=== PATIENT | male | born 1985 | race Caucasian/White ===

== ENCOUNTER 2018-01-27 22:30 | Emergency (ER) | payer OTHER ==
[2018-01-27 22:34] VITALS: BP 132/73
[2018-01-27] MEDS ORDERED: Ibuprofen TAB* 600 MG PO ONE (22:43)
--- NOTE | 2018-01-27 23:54 | ED ---
Lower Extremity - HPI Summary HPI Summary: Patient presents to the ED with a chief complaint of left lateral ankle swelling after twisting it during soccer approximately one hour prior to arrival. He endorses a severe amount of swelling, slight ecchymosis. He was able to bear weight onto the ankle for a short amount of time after the accident. He is not bearing weight on arrival. He denies any other pain or symptoms. Denies falling, hitting has had or loss of consciousness. Denies any numbness or tingling in the foot or the leg. Denies pain into the leg or foot. Pulses +2 intact bilaterally dorsalis pedis and posterior tibial. He endorses a previous fracture to the ipsilateral leg when he was 16 years old. - History of Current Complaint Chief Complaint: EDExtremityLower Stated Complaint: LEFT ANKLE INJURY Time Seen by Provider: 01/27/18 22:36 Hx Obtained From: Patient Mechanism Of Injury: Twisted Onset of Pain: Minutes Onset/Duration: Minutes Severity Initially: Mild Severity Currently: Mild Pain Intensity: 3 Pain Scale Used: 0-10 Numeric Timing: Constant Location: Is Discrete @ - left lateral ankle Associated Signs And Symptoms: Positive: Swelling Aggravating Factor(s): Standing, Ambulation Alleviating Factor(s): Rest Able to Bear Weight: Yes - Risk Factors Gout Risk Factors: Negative DVT Risk Factors: Negative Septic Arthritis Risk Factor: Negative - Allergies/Home Medications Allergies/Adverse Reactions: Allergies Allergy/AdvReac Type Severity Reaction Status Date / Time No Known Allergies Allergy Verified 01/27/18 22:34 PMH/Surg Hx/FS Hx/Imm Hx Previously Healthy: Yes - Immunization History Hx Pertussis Vaccination: No Immunizations Up to Date: Unable to Obtain/Confirm Infectious Disease History: No Infectious Disease History: Denies: Traveled Outside the [place] in Last 30 Days - Social History Occupation: Employed Full-time Lives: With Family Alcohol Use: None Hx Substance Use: No Substance Use Type: Reports: None Hx Tobacco Use: No Smoking Status (MU): Never Smoked Tobacco Review of Systems Constitutional: Negative Negative: Fever, Chills, Fatigue Eyes: Negative Cardiovascular: Negative Genitourinary: Negative Positive: no symptoms reported, see HPI Positive: Arthralgia, Myalgia Skin: Negative Positive: Other - swelling Neurological: Negative All Other Systems Reviewed And Are Negative: Yes Physical Exam - Summary Physical Exam Summary: Thorough physical exam was performed, focusing on ankle special tests. Pain on palpation over lateral aspect and superior aspect of ankle over ATFL and deltoid ligaments. No pain on palpation over medial side. Due to patient pain around injury, physical exam was limited. Anterior drawer test and talar tilt test negative. Dale test negative. Limited ROM. Dorsiflexion, great toe extension and plantar flexion intact however limited. No pain on palpation over medial or lateral lower extremity. No pain with knee flexion. Pulses intact bilaterally. No temperature change or pallor noted bilaterally. Ecchymosis and swelling noted on lateral aspect. No lesion or disruption of skin is seen. Able to bear weight with pain. Triage Information Reviewed: Yes Vital Signs On Initial Exam: Initial Vitals Temp Pulse Resp BP Pulse Ox 99 F 97 16 132/73 95 01/27/18 22:32 01/27/18 22:32 01/27/18 22:32 01/27/18 22:32 01/27/18 22:32 Vital Signs Reviewed: Yes Appearance: Positive: Well-Appearing, Well-Nourished Skin: Positive: Warm, Other - sweling to lateral ankle Head/Face: Positive: Normal Head/Face Inspection Eyes: Positive: EOMI, PARAG, Conjunctiva Clear Neck: Positive: Supple, No Lymphadenopathy Respiratory/Lung Sounds: Positive: Clear to Auscultation, Breath Sounds Present Cardiovascular: Positive: Normal, RRR, Pulses are Symmetrical in both Upper and Lower Extremities Musculoskeletal: Positive: Strength/ROM Intact, Pain @ - left lateral ankle with pain and swelling. Negative: Fernie Sign Left, Fernie Sign Right, Edema Left , Edema Right Neurological: Positive: Speech Normal Psychiatric: Positive: Normal, Affect/Mood Appropriate AVPU Assessment: Alert Diagnostics - Vital Signs Vital Signs Temp Pulse Resp BP Pulse Ox 01/27/18 22:32 99 F 97 16 132/73 95 - Laboratory Lab Statement: Any lab studies that have been ordered have been reviewed, and results considered in the medical decision making process. Lower Extremity Course/Dx - Course Course Of Treatment: During the course of treatment, the patient's evaluated for left ankle swelling and pain. X-ray obtained and ibuprofen given. X-ray read by Dr. Ignacio and myself as negative for any new fractures. There appears to be an old small fracture to the distal fibula. Gel cast and crutches given. I will call tomorrow morning for any differing results from the radiology report. He is okay with this plan and discharge. - Diagnoses Provider Diagnoses: Ankle sprain Discharge - Discharge Plan Condition: Stable Disposition: HOME Patient Education Materials: Ankle Sprain (ED) Referrals: Riri Kumar MD [Primary Care Provider] - Bimal Ibarra MD [Medical Doctor] - Additional Instructions: Crutches for ambulation given. Ibuprofen 600mg three times daily with meals for pain. Follow up with orthopedic physician in 5-7 days. If numbness, tingling, decreased sensation, increased pain, temperature changes or pallor noted in toes, come back to ER immediately. Protect the area. For your comfort level, do not bear weight, pull or push until you can injury is somewhat healed. This may involve the need for immobilization or crutches for a period of time. Rest the involved area, but not too long. You may need to be off your injury for some time to allow for healing, however excessive immobilization of joints can lead to stiffness and delay healing time. Early mobilization is encouraged if it is pain-free. Ice. Not directly on the skin. Cover with a towel. Apply ice no more than 30 minutes at a time Compression: You may use and keep an lu wrap bandage over the injury to decrease swelling. Again, this should be limited and be taken off periodically to encourage early range of motion and mobilization. Elevate: Try to elevate the injured area above the heart whenever possible.
--- NOTE | 2018-01-28 07:45 | RAD ---
INDICATION: Left ankle injury. TECHNIQUE: 3 views of the left ankle were obtained. FINDINGS: Soft tissue swelling is noted along the anterolateral aspect of the ankle. There is mild periosteal elevation along the lateral aspect of the distal fibula suggestive of a nondisplaced fracture. A discrete fracture line is not visualized. No other fractures are seen. The results of this exam were called to the emergency department nurse Sophia. IMPRESSION: SOFT TISSUE SWELLING AND NONDISPLACED FRACTURE OF THE DISTAL FIBULA.
--- NOTE | 2018-01-28 09:54 | PN ---
Progress Note - Progress Note Date of Service: 01/28/18 Note: Discussed results of the x-ray with patient Impression: Soft tissue swelling and nondisplaced fracture of the distal fibula I have asked Dr. Gaytan to review the x-ray Called Dr. Singer at 9:30 AM to review the x-ray Dr. Castelan does not believe the patient needs to return for a splint at this time He agrees to see him in the office tomorrow I have called the patient, he agrees to call Dr. Castelan's office for an appointment tomorrow He will remain nonweightbearing and with crutches until that time
== END 2018-01-27 23:53 | disposition home or self-care (01) ==
LOC: ED 22:30
DX: S93.402A Sprain of unspecified ligament of left ankle, initial encounter (principal); X50.0XXA Overexertion from strenuous movement or load, initial encounter; Y93.66 Activity, soccer; Y92.9 Unspecified place or not applicable
CPT/HCPCS: 99282; A9270-GY